=== PATIENT | female | born 1950 | race Caucasian/White ===

== ENCOUNTER 2017-04-01 10:49 | Inpatient (IN) | payer OTHER ==
[~2017-04-01] VITALS: Ht 162.6 cm; Wt 87.5 kg
[2017-04-01 11:57] LABS: PCO2 43 mm Hg (35-45); PO2 66 mm Hg (80-100); pH 7.42 (7.35-7.45)
[2017-04-01 11:58] LABS: BASE EXCESS 2.8 mEq/L (-3 to +3); BICARBONATE 27.9 mEq/L (22-26); CARBOXY HGB 6.3 % (0-5); COMMENTS - BLOOD GASES A+C+; DEVICE NIV; FI02 50 %; HEMOGLOBIN 17.8 (11.9-15.5); METHEMOGLOBIN 1.1 % (0-1.5); MODE SPONT; PEEP 5 CM/H20; PRES. SUPPORT 10 CM/H2O; SITE RR; TOTAL RESP RATE 40 resp/min
[2017-04-01 12:41] LABS: BASOPHIL COUNT 0.1 K/uL (0-0.1); EOSINOPHIL (%) 0.1 % (0-5); HEMATOCRIT 52.4 % (36.0-46.0); IMMATURE GRANULOCYTE (%) 0.6 % (0.0-0.7); IMMATURE GRANULOCYTE COUNT 0.1 K/uL; INSTRUMENT ABS NEUTROPHIL CT 14.9 K/uL; LYMPHOCYTE COUNT 0.3 K/uL (1.0-2.8); MCH 31.4 PG (29.0-34.0); MCHC 33.8 G/DL (30.0-36.0); MCV 92.9 FL (83-99); MEAN PLAT.VOLUME 9.6 uM^3 (9.5-12.4); MONOCYTE COUNT 0.3 K/uL (0-0.8); NEUTROPHIL (%) 94.9 % (45-76); NEUTROPHIL COUNT 14.9 K/uL (1.8-6.4); PLATELET COUNT 193 K/uL (156-360); RBC DIS.WIDTH-CV 12.4 % (11.8-14.6); RBC DIS.WIDTH-SD 42.6 % (39-53); RED BLOOD COUNT 5.64 M/uL (3.80-5.20); WHITE BLOOD COUNT 15.7 K/uL (4.1-10.2)
[2017-04-01 12:49] LABS: CHLORIDE 98 mEq/L (99-109); SODIUM 136 mEq/L (136-147)
[2017-04-01 12:52] LABS: ANION GAP 12 MEQ/L (2-14)
[2017-04-01 12:53] LABS: GLUCOSE 485 mg/dL (70-99); TOTAL BILIRUBIN 0.6 mg/dL (0.0-1.0)
[2017-04-01 12:55] LABS: ALKALINE PHOSPHATASE 169 IU/L (3-129); GFR ESTIMATE (CALCULATED) 59 mL/min/
[2017-04-01 12:56] LABS: UREA NITROGEN (BUN) 28 mg/dL (9-23)
[2017-04-01 12:58] LABS: ADD MIUA? YES; BILIRUBIN NEGATIVE; BLOOD SMALL; COLOR YELLOW ((YELLOW)); GLUCOSE (STRIP) >=500; KETONES 5; LEUKOCYTES SMALL; NITRITE NEGATIVE; PROTEIN (STRIP) 30; SPECIFIC GRAVITY 1.028 (1.000-1.030); UROBILINOGEN 0.2 MG/DL (0.2-1.0)
[2017-04-01 13:02] LABS: BACTERIA 2+ /HPF; EPITHELIAL CELLS 1+ /HPF; MUCUS NONE SEEN /LPF; RED BLOOD CELLS NONE SEEN /HPF (0-5); UCUL ADDED? YES; WHITE BLOOD CELLS 30-40 /HPF (0-5)
[2017-04-01 13:14] LABS: LIPASE 68 U/L (1.0-51.0)
[2017-04-01] MEDS ORDERED: LISINOPRIL-HCT1 EAC3 PO (15:21)
[2017-04-01 16:18] LABS: Estimated Average Glucose 384 mg/dL (70-123)
[2017-04-01 16:29] LABS: SAMPLE HEMOLYSIS CHECK 0; SAMPLE ICTERIC CHECK 0; SAMPLE LIPEMIA CHECK 0
[2017-04-01 16:34] LABS: HDL CHOLESTEROL 31 MG/DL (Desirable>=50); NON-HDL CHOLESTEROL 221 mg/dL (Desirable<160); TOTAL CHOLESTEROL 252 mg/dL (Desirable<200); TRIGLYCERIDES 403 MG/DL (Normal: <150)
[2017-04-01 17:10] LABS: TROP-I INTERPRETATION NEGATIVE; TROPONIN-I 0.02 ng/mL (0.0-0.30)
[2017-04-01 18:21] VITALS: BP 117/56
[2017-04-01 21:57] LABS: TROP-I INTERPRETATION NEGATIVE; TROPONIN-I 0.01 ng/mL (0.0-0.30)
[2017-04-01 23:17] VITALS: BP 138/72
[2017-04-02 02:35] LABS: POINT-OF-CARE METER ID UU14314084
[2017-04-02 03:07] VITALS: BP 104/53
[2017-04-02 06:23] LABS: POINT-OF-CARE METER ID UU14162508
[2017-04-02 06:54] LABS: HEMATOCRIT 49.4 % (36.0-46.0); MCHC 32.4 G/DL (30.0-36.0); MCV 95.7 FL (83-99); MEAN PLAT.VOLUME 9.7 uM^3 (9.5-12.4); PLATELET COUNT 192 K/uL (156-360); RBC DIS.WIDTH-CV 12.2 % (11.8-14.6); RBC DIS.WIDTH-SD 43.5 % (39-53); RED BLOOD COUNT 5.16 M/uL (3.80-5.20); WHITE BLOOD COUNT 21.2 K/uL (4.1-10.2)
[2017-04-02 07:00] VITALS: BP 131/60
[2017-04-02 07:14] LABS: TROP-I INTERPRETATION NEGATIVE; TROPONIN-I < 0.01 ng/mL (0.0-0.30)
[2017-04-02 12:26] LABS: POINT-OF-CARE METER ID UU14314084
[2017-04-02 12:52] VITALS: BP 120/59
[2017-04-02 15:17] VITALS: BP 148/67
[2017-04-02 16:44] LABS: POINT-OF-CARE METER ID UU14314084
[2017-04-02 19:35] VITALS: BP 134/86
[2017-04-02 23:18] VITALS: BP 137/65
[2017-04-03 00:41] LABS: POINT-OF-CARE METER ID UU14208750
[2017-04-03 03:00] VITALS: BP 115/64
[2017-04-03 06:16] LABS: HEMATOCRIT 47.2 % (36.0-46.0); MCH 31.3 PG (29.0-34.0); MCHC 32.8 G/DL (30.0-36.0); MCV 95.2 FL (83-99); MEAN PLAT.VOLUME 9.8 uM^3 (9.5-12.4); PLATELET COUNT 200 K/uL (156-360); RBC DIS.WIDTH-CV 12.4 % (11.8-14.6); RBC DIS.WIDTH-SD 43.3 % (39-53); RED BLOOD COUNT 4.96 M/uL (3.80-5.20); WHITE BLOOD COUNT 17.6 K/uL (4.1-10.2)
[2017-04-03 06:44] LABS: POINT-OF-CARE METER ID UU14208750
[2017-04-03 06:58] LABS: ANION GAP 5 MEQ/L (2-14); CHLORIDE 103 MEQ/L (99-109); GFR ESTIMATE (CALCULATED) > 59 mL/min/; POTASSIUM 4.8 MEQ/L (3.7-5.4); SAMPLE HEMOLYSIS CHECK 0; SAMPLE ICTERIC CHECK 0; SAMPLE LIPEMIA CHECK 0; SODIUM 138 MEQ/L (136-147); UREA NITROGEN (BUN) 22 mg/dL (9-23)
[2017-04-03 07:09] LABS: GLUCOSE 180 mg/dL (70-99)
[2017-04-03 07:57] VITALS: BP 144/77
[2017-04-05 10:33] LABS: POINT-OF-CARE METER ID UU14314084
[2017-04-05 10:35] LABS: POINT-OF-CARE METER ID UU14162508
[2017-04-05 10:38] LABS: POINT-OF-CARE METER ID UU14162508
[2017-04-05 10:39] LABS: POINT-OF-CARE METER ID UU13113702
[2017-04-05 10:39] LABS: POINT-OF-CARE METER ID UU13113702
[2017-04-05 10:39] LABS: POINT-OF-CARE METER ID UU14208750
[2017-04-05 10:39] LABS: POINT-OF-CARE METER ID UU14208750
== END 2017-04-03 11:55 | disposition left against medical advice (07) | DRG 637 ==
LOC: EME 10:49 → EDOF 15:05 → 2EAST 15:05 → ENRESERV 15:12 → 2EAST 18:10
PROVIDERS: Emergency Medicine; Hospitalist; Internal Medicine
PROC: 5A09357 Assistance with Respiratory Ventilation, Less than 24 Consecutive Hours, Continuous Positive Airway Pressure (ICD-10-PCS; principal; 2017-04-01)
DX: E11.65 Type 2 diabetes mellitus with hyperglycemia (principal); A41.89 Other specified sepsis; N39.0 Urinary tract infection, site not specified; J96.01 Acute respiratory failure with hypoxia; J44.1 Chronic obstructive pulmonary disease with (acute) exacerbation; J44.0 Chronic obstructive pulmonary disease with (acute) lower respiratory infection; J20.9 Acute bronchitis, unspecified; I10 Essential (primary) hypertension; E78.5 Hyperlipidemia, unspecified; F17.200 Nicotine dependence, unspecified, uncomplicated; E66.9 Obesity, unspecified; Z68.33 Body mass index [BMI] 33.0-33.9, adult; Z23 Encounter for immunization
CPT/HCPCS: 36600; 71010; 80048; 80053; 80061; 81003; 82010; 82803; 82948; 83036; 83605; 83690; 84484; 85025; 85027; 87040; 87070; 87077; 87086; 87186; 87205; 87801; 90686; 93005; 94002; 94640; 94640 76; 94760; 94799; 99202; 99281; 99285; J0696; J1650; J1815; J2405; J2930; J7030; J7512